=== PATIENT | female | born 1990 | race Two or more races ===

== ENCOUNTER → 2019-04-13 | Outpatient (CLI) | payer OTHER | END | disposition home or self-care (01) | LOC: PRENATAL 08:00 | DX: O35.3XX0 Maternal care for (suspected) damage to fetus from viral disease in mother, not applicable or unspecified (principal); O99.89 Other specified diseases and conditions complicating pregnancy, childbirth and the puerperium; Z36.0 Encounter for antenatal screening for chromosomal anomalies ==

== ENCOUNTER → 2019-06-17 | Outpatient (CLI) | payer OTHER | END | disposition home or self-care (01) | LOC: PRENATAL 06-15 08:00 | DX: O26.843 Uterine size-date discrepancy, third trimester (principal); O99.89 Other specified diseases and conditions complicating pregnancy, childbirth and the puerperium; Z3A.30 30 weeks gestation of pregnancy ==

== ENCOUNTER 2019-08-05 14:15 | Inpatient (IN) | payer OTHER ==
[~2019-08-05] VITALS: Ht 162.6 cm; Wt 61.2 kg
[2019-08-19] MEDS ORDERED: PRENATAL CAPLE1 EAC1 PO (14:01)
[2019-08-19] MEDS ORDERED: FOLIC ACID0.8 M1 PO (14:02)
[2019-08-23] MEDS ORDERED: IBU800 MG PO (16:55)
[2019-08-23] MEDS ORDERED: COLACE100 MG PO (16:55)
[2019-08-23] MEDS ORDERED: SIMETHICONE125 M1 PO (16:56)
== END 2019-08-23 17:01 | disposition home or self-care (01) | DRG 788 ==
LOC: LDR 08-19 13:21 → O/R 08-19 19:22 → OB/GYN 08-19 20:53
PROVIDERS: Obstetrics & Gynecology; ADMIT Obstetrics & Gynecology
PROC: 3E033VJ Introduction of Other Hormone into Peripheral Vein, Percutaneous Approach (ICD-10-PCS; 2019-08-19)
PROC: 4A1HXCZ Monitoring of Products of Conception, Cardiac Rate, External Approach (ICD-10-PCS; 2019-08-19)
PROC: 10D00Z1 Extraction of Products of Conception, Low, Open Approach (ICD-10-PCS; principal; 2019-08-19 18:00)
DX: O62.0 Primary inadequate contractions (principal); Z3A.39 39 weeks gestation of pregnancy; Z37.0 Single live birth

== ENCOUNTER 2019-08-06 09:28 | Outpatient (CLI) | payer OTHER | END 2019-08-06 10:22 | disposition home or self-care (01) | LOC: NST 09:28 | DX: Z34.83 Encounter for supervision of other normal pregnancy, third trimester (principal) ==

== ENCOUNTER 2025-05-22 13:14 | Inpatient (IN) | payer OTHER ==
[~2025-05-22] VITALS: Ht 175.3 cm; Wt 54.4 kg
[~2025-05-22 13:14] MED LIST: COLACE100 MG PO; FOLIC ACID0.8 M1 PO; IBU800 MG PO; PRENATAL CAPLE1 EAC1 PO; SIMETHICONE125 M1 PO
[2025-05-22 14:18] VITALS: O2SAT 99
--- NOTE | 2025-05-22 14:30 | NUR ---
PACIENTE ALERTA Y ORIENTADA SE OBERVA LLOROSA Y VERBALIZA TENER DOMENIC DOLOR EN EL AREA PELVICA Y PRESENTAR SANGRADO OSCURO CON COAGULOS, LA MISMA EMBARAZADA DE 14 SEMANAS. SE MIDEN V/S, SE PRESENTA A MD Y SE UBICA EN JOHANNY 8.
[2025-05-22] MEDS ORDERED: ACETAMINOPHEN 500 MG GEL..CAP PO STA (14:55)
[2025-05-22] MEDS ORDERED: MORPHINE SULFATE 2 MG/ML SYRINGE IV STA (14:56)
[2025-05-22] MEDS ORDERED: ONDANSETRON HCL 2 MG/ML VIAL IV STA (14:56)
[2025-05-22] MEDS ORDERED: 0.9 % SODIUM CHLORIDE 1,000 ML IV STA (14:57)
[2025-05-22] MEDS ORDERED: CEFTRIAXONE SODIUM 1,000 MG VIAL IV STA (16:27)
[2025-05-22 16:39] LABS: BASO % 0.3 % (0.1-1.2); EOS # 0.05 (0.04-0.54); EOS % 0.5 % (0.7-7.0); LYMPH # 1.34 (1.18-3.74); LYMPH % 13.2 % (19.3-53.1); MEAN PLATELET VOLUME 9.90 fl (9.4-12.4); MONO # 0.68 (0.24-0.82); MONO % 6.7 % (4.7-12.5); NEUT # 7.98 (1.56-6.13); NEUT % 78.8 % (34.0-71.1); RED CELL DISTRIBUTION WIDTH 12.1 % (11.6-14.4)
[2025-05-22 17:01] LABS: INR 1.03
[2025-05-22 17:04] LABS: BUN CREA RATIO 25.0 (7.0-25.0); CREATININE SERUM 0.65 mg/dL (0.55-1.02); GFR 104.34; GLUCOSE FASTING 112.0 mg/dL (65-100); OSMOLALITY SERUM 287.0 MOSM/KG (275-295)
--- NOTE | 2025-05-22 17:11 | NUR ---
PTE EVALUADO POR , PRESENTANDO SANGRADO VAGINAL, SE CINDY MUESTRAS DE MIRANDA BAJO MEDIDAS ASEPTICAS, MEDICACION ADMINISTRADA Y ORIENTACION OFRECIDA SOBRE MEDICACION Y PROCESO DE RE-EVALUACION MEDICA. CLIENTE ALERTA Y ORIENTADO AL MOMENTO DE INTERVENCION POR PERSONAL RN.
[2025-05-22 17:17] LABS: URINE APPEARANCE Turbid; URINE BILIRRUBIN Negative (NEGATIVE); URINE BLOOD Large; URINE COLOR Yellow; URINE GLUCOSE Negative (NEGATIVE); URINE KETONE Negative (NEGATIVE); URINE LEUKOCYTE Trace; URINE NITRATE Negative; URINE PROTEIN Trace (NEGATIVE); URINE UROBILINOGEN 0.2 E.U./dl
[2025-05-22 17:20] LABS: URINE BACTERIA 46.9 uL (0.0-1933); URINE EPITHELIAL CELLS 15.7 uL (0.0-38.8); URINE RBC 176.5 uL (0.0-20.8); URINE WBC 1.8 uL (0.0-23.2)
[2025-05-22 17:31] LABS: URINE CAST 0.14 uL (0.0-1.40)
[2025-05-22 17:33] LABS: URINE YEAST NEGATIVE /hpf
[2025-05-22] MEDS ORDERED: 0.9 % SODIUM CHLORIDE 1,000 ML IV SCH (17:45)
[2025-05-22 18:21] VITALS: BP 106/70
[2025-05-22] MEDS ORDERED: CITRIC ACID/SODIUM CITRATE 30 ML BLIST.PACK PO ONE (21:00)
[2025-05-22] MEDS ORDERED: FAMOTIDINE/PF 20 MG/2 ML VIAL IV ONE (21:00)
[2025-05-22 21:09] VITALS: BP 116/60
[2025-05-22 23:00] VITALS: BP 129/70
[2025-05-22] MEDS ORDERED: ACETAMINOPHEN 500 MG GEL..CAP PO PRN (23:45)
[2025-05-23] MEDS ORDERED: CEFOXITIN SODIUM 2,000 MG VIAL IV SCH (01:00)
[2025-05-23] MEDS ORDERED: PROMETHAZINE HCL 25 MG/ML AMPUL IV SCH (01:00)
[2025-05-23 01:11] LABS: BASO % 0.2 % (0.1-1.2); EOS # 0.00 (0.04-0.54); EOS % 0.0 % (0.7-7.0); LYMPH # 0.82 (1.18-3.74); LYMPH % 6.4 % (19.3-53.1); MEAN PLATELET VOLUME 10.90 fl (9.4-12.4); MONO # 0.31 (0.24-0.82); MONO % 2.4 % (4.7-12.5); NEUT # 11.54 (1.56-6.13); NEUT % 90.5 % (34.0-71.1); RED CELL DISTRIBUTION WIDTH 12.0 % (11.6-14.4)
[2025-05-23 01:49] LABS: RH POSITIVE
[2025-05-23 03:00] VITALS: BP 95/60
[2025-05-23 08:27] VITALS: BP 100/64
[2025-05-23] MEDS ORDERED: FAMOTIDINE/PF 20 MG/2 ML VIAL IV SCH (09:00)
== END 2025-05-23 15:38 | disposition home or self-care (01) | DRG 779 ==
LOC: ER 13:14 → OB/GYN 18:43 → LDR 21:09 → OB/GYN 05-23 01:32
PROVIDERS: General Practice; ADMIT Obstetrics & Gynecology; ATTEND Obstetrics & Gynecology
PROC: BU4CZZZ Ultrasonography of Uterus and Ovaries (ICD-10-PCS; principal; 2025-05-22)
DX: O03.1 Delayed or excessive hemorrhage following incomplete spontaneous abortion (principal); O03.39 Incomplete spontaneous abortion with other complications; R10.20 Pelvic and perineal pain unspecified side